=== PATIENT | male | born 1965 ===

== ENCOUNTER 2021-03-22 13:51 | Emergency (ER) | payer OTHER ==
[2021-03-22 14:55] LABS: BASOPHIL 0.9 % (0-2); EOSINOPHIL 3.6 % (0-5); HCT 53.4 % (42.0-52.0); HGB 17.9 g/dl (13.2-18.0); LYMPHOCYTE 33.1 % (15-48); MCH 30.3 pg (25.0-31.0); MCHC 33.5 g/dL (32.0-36.0); MCV 90.4 fL (78.0-100.0); MONOCYTE 6.5 % (0-12); MPV 10.2 fL (6.0-9.5); NRBC 0; PLT 269 K/uL (150-400); RBC 5.91 M/uL (4.70-6.00); RDW 12.8 % (11.5-14.0); WBC 7.8 K/uL (4.0-10.5)
[2021-03-22 15:18] LABS: ALBUMIN 4.2 g/dL (3.4-5.0); BILIRUBIN - TOTAL 0.7 mg/dL (0.2-1.0); GLOBULIN (CALCULATION) 3.6 g/dL; POTASSIUM 4.3 mmol/L (3.5-5.1); TOTAL PROTEIN 7.8 g/dL (6.4-8.2)
== END 2021-03-22 17:32 | disposition left against medical advice (07) ==
LOC: FER 13:51
PROVIDERS: Emergency Medicine
DX: R07.9 Chest pain, unspecified (principal); Z53.21 Procedure and treatment not carried out due to patient leaving prior to being seen by health care provider
CPT/HCPCS: 36415; 80053; 84484; 85025; 93005